=== PATIENT | female | born 1995 | race Caucasian/White ===

== ENCOUNTER → 2019-03-20 | Outpatient (CLI) | payer BC ==
[~2019-03-20] MED LIST: CIPR500T4 PO; HYDR-1231 PO; ONDA-42 SL; OXYC-199 PO
--- NOTE | 2019-03-20 15:46 | Diagnostic Imaging Report ---
PROCEDURE: US Abdomen, limited. TECHNIQUE: Multiple realtime grayscale images were obtained over the abdomen in various projections. INDICATION: Left upper quadrant pain. COMPARISON: There are no prior ultrasound examinations available for comparison. FINDINGS: The CT abdomen/pelvis exam of 07/24/2014 noted obstruction of the right collecting system due to a 4 mm calculus at the ureterovesical junction. There were also nonobstructive calculi on the left. Reportedly, there is clinical concern regarding a hernia in the left upper quadrant. The ultrasound examination of this area shows no defect in the anterior abdominal wall. There is no sign of the bowel extending through the anterior abdominal wall. IMPRESSION: There is no evidence for herniation of the bowel through the anterior abdominal wall in the left upper quadrant. Dictated by: Dictated on workstation # [id number]
== END ==
LOC: RAD 14:55
PROVIDERS: ATTEND Nurse Practitioner Family
DX: R10.32 Left lower quadrant pain (principal)
CPT/HCPCS: 76705